=== PATIENT | female | born 2000 | race Two or more races ===

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

== ENCOUNTER 2024-04-24 16:02 | Emergency (ER) | payer BC ==
[~2024-04-24] VITALS: Ht 160 cm; Wt 59.0 kg
[2024-04-24 16:15] VITALS: BP 139/93; TEMP 98.8
[2024-04-24] MEDS ORDERED: PSEUDOEPHEDRINE HCL 30 MG TABLET ONE (16:33)
[2024-04-24] MEDS ORDERED: IBUPROFEN 600 MG TABLET ONE (16:33)
[2024-04-24] MEDS: IBUPROFEN 600 MG TABLET PO ONE (16:36)
[2024-04-24] MEDS: PSEUDOEPHEDRINE HCL 30 MG TABLET PO ONE (16:36)
[2024-04-24 17:05] VITALS: O2SAT 98
== END 2024-04-24 17:06 | disposition home or self-care (01) ==
LOC: ER 16:06
DX: J01.10 Acute frontal sinusitis, unspecified (principal); J34.89 Other specified disorders of nose and nasal sinuses; R53.1 Weakness